=== PATIENT | male | born 1970 | race Caucasian/White ===

== ENCOUNTER 2020-09-21 08:26 | Day surgery (SDC) | payer BC ==
[~2020-09-21] VITALS: Ht 180.3 cm; Wt 100.0 kg
[~2020-09-21 08:26] MED LIST: ALFU10TA9 PO; ASPI-1111 PO; ATOR-2 PO; EZET10TA13 PO; FENO160T16 PO; FLUT16H NASAL; ICOS1CAP PO; LOSA50TA37 PO; METF-960 PO; METO-408 PO; MONT10TA32 PO; SODIUM CHLORIDE 0.9% 1,000 ML IV ONE; SODIUM CHLORIDE 0.9% 1,000 ML ONE
[2020-09-21 09:24] LABS: GLUCOMETER DEV NAME(LOC) SDS.; GLUCOSE,POINT OF CARE 181 MG/DL (70-110)
[2020-09-21] MEDS ORDERED: HEPARIN SODIUM 1000 UNITS/NS 1,000 ML ONE (09:38)
[2020-09-21] MEDS ORDERED: SODIUM BICARBONATE 50 MEQ/50 ML VIAL ONE (09:38)
[2020-09-21] MEDS ORDERED: IOHEXOL 300 MG/ML 100 ML VIAL ONE ×2 (09:38→11:37)
[2020-09-21] MEDS ORDERED: IOHEXOL 300 MG/ML 50 ML VIAL ONE (09:38)
[2020-09-21] MEDS ORDERED: LIDOCAINE/PF 1% 30 ML VIAL ONE (09:38)
[2020-09-21 11:11] VITALS: BP 131/68
[2020-09-21] MEDS ORDERED: FentaNYL CITRATE PF 100 MCG/2 ML VIAL ONE ×2 (11:20→11:31)
[2020-09-21] MEDS ORDERED: MIDAZOLAM HCL 2 MG/2 ML VIAL ONE ×2 (11:21→11:31)
[2020-09-21] MEDS ORDERED: HEPARIN SODIUM 1000 UNITS/NS 1,000 ML IARTER ONE (11:30)
[2020-09-21] MEDS ORDERED: LIDOCAINE 1% 30 ML/SOD BICARB 8.4% 4 ML SQ ONE (11:30)
[2020-09-21] MEDS ORDERED: IOHEXOL 300 MG/ML 100 ML VIAL IARTER ONE (11:30)
[2020-09-21] MEDS ORDERED: FentaNYL CITRATE PF 100 MCG/2 ML VIAL IVP ONE ×4 (11:30→11:45)
[2020-09-21] MEDS ORDERED: MIDAZOLAM HCL 2 MG/2 ML VIAL IVP ONE ×5 (11:30→12:00)
[2020-09-21] MEDS ORDERED: DiphenhydrAMINE HCL 50 MG/ML VIAL ONE (11:41)
[2020-09-21] MEDS ORDERED: DiphenhydrAMINE HCL 50 MG/ML VIAL IVP ONE (11:45)
[2020-09-21 12:03] VITALS: BP 109/62
== END 2020-09-21 16:20 | disposition home or self-care (01) ==
LOC: CATHLAB 08:26
PROVIDERS: ATTEND Internal Medicine Interventional Cardiology
DX: R94.39 Abnormal result of other cardiovascular function study (principal); I25.110 Atherosclerotic heart disease of native coronary artery with unstable angina pectoris; E78.00 Pure hypercholesterolemia, unspecified; Z79.82 Long term (current) use of aspirin; I10 Essential (primary) hypertension; Z98.890 Other specified postprocedural states; Z82.49 Family history of ischemic heart disease and other diseases of the circulatory system; Z79.899 Other long term (current) drug therapy
CPT/HCPCS: 82962; 93458; 99152; 99153; J1200; J1644; J2250; J3010; J3490 ×2; J7030; Q9967 ×2; 93005